=== PATIENT | female | born 1980 | race Caucasian/White ===

== ENCOUNTER 2019-06-25 19:25 | Emergency (ER) | payer OTHER ==
[2019-06-25 19:38] VITALS: BMI 35.7
--- NOTE | 2019-06-25 20:02 | PDOC ---
History of Present Illness - General Chief Complaint: Wheezing Stated Complaint: FEVER/COUGHING/CHILLS Time Seen by Provider: 06/25/19 20:01 History Source: Patient Past History - Past Medical History Allergies/Adverse Reactions: Allergies Allergy/AdvReac Type Severity Reaction Status Date / Time shellfish derived Allergy Verified 06/25/19 19:29 Home Medications: Ambulatory Orders Azithromycin 250 mg PO DAILY #6 tablet 06/25/19 Asthma: Yes COPD: No Disorders: Yes (D+C) - Psycho Social/Smoking Cessation Hx Smoking History: Never smoked Hx Alcohol Use: No Drug/Substance Use Hx: No *Physical Exam - Vital Signs Last Vital Signs Temp Pulse Resp BP Pulse Ox 102.9 F H 130 H 22 H 141/74 94 L 06/25/19 19:30 06/25/19 19:30 06/25/19 19:30 06/25/19 19:30 06/25/19 19:30 Discharge - Discharge Information Problems reviewed: Yes Clinical Impression/Diagnosis: Pneumonia Qualifiers: Pneumonia type: due to unspecified organism Laterality: right Lung location: middle lobe of lung Qualified Code(s): J18.9 - Pneumonia, unspecified organism Condition: Stable Disposition: HOME - Admission No - Additional Discharge Information Prescriptions: Azithromycin 250 mg PO DAILY #6 tablet - Follow up/Referral Referrals: ON STAFF,NOT [Primary Care Provider] - - Patient Discharge Instructions Patient Printed Discharge Instructions: DI for Pneumonia -- Adult Additional Instructions: You were seen in the ER for fever, chills, cough. Your chest x ray shows a small pneumonia. We are sending an antibiotic to your pharmacy - please take it as directed. We gave you your first dose here in the ER. Please return if you develop high fevers that do not go down with tylenol, weakness, confusion, chest pain, or trouble breathing. - Post Discharge Activity Work/Back to School Note: Back to Work
[2019-06-25] MEDS ORDERED: ACETAMINOPHEN 500 MG TABLET (FP) PO ONE (20:29)
[2019-06-25] MEDS ORDERED: ACETAMINOPHEN 325 MG TABLET (FP) ONE (20:31)
--- NOTE | 2019-06-25 21:30 | PDOC ---
Documentation entered by Mat Jean SCRIBE, acting as scribe for Aby Peter MD. Aby Peter MD: This documentation has been prepared by the pawanibe, Mat Jean SCRIBE, under my direction and personally reviewed by me in its entirety. I confirm that the documentation accurately reflects all work, treatment, procedures, and medical decision making performed by me. Attending Attestation - Resident Resident Name: [email or web address] - ED Attending Attestation I have performed the following: I have examined & evaluated the patient, The case was reviewed & discussed with the resident, I agree w/resident's findings & plan, Exceptions are as noted - HPI HPI: 06/25/19 20:43 The patient is a 39 year old female with a past medical history of asthma here today for evaluation of fever, cough, and general body aches. The patient reports that yesterday she developed a productive cough, fever, general body aches, and rhinorrhea. She notes that she has an unvaccinated 1 year old at home. Patient denies headache, lightheadedness. Denies chills. Denies chest pain, shortness of breath. Denies nausea, vomiting, diarrhea, abdominal pain. Allergies: shellfish derived - Physicial Exam PE: 06/25/19 21:12 GENERAL: Well developed, well nourished. Awake and alert. No acute distress. HEENT: Normocephalic, atraumatic. PERRLA, EOMI. No conjunctival pallor. Sclera are non- icteric. Moist mucous membranes. Oropharynx is clear. NECK: Supple. Full ROM. No JVD. Carotid pulses 2+ and symmetric, without bruits. No thyromegaly. No lymphadenopathy. CARDIOVASCULAR: +tachycardia Regular rhythm. No murmurs, rubs, or gallops. Distal pulses are 2+ and symmetric. PULMONARY: No evidence of respiratory distress. Lungs clear to auscultation bilaterally. No wheezing, rales or rhonchi. ABDOMINAL: Soft. Non-tender. Non-distended. No rebound or guarding. No organomegaly. Normoactive bowel sounds. MUSCULOSKELETAL Normal range of motion at all joints. No bony deformities or tenderness. No CVA tenderness. EXTREMITIES: No cyanosis. No clubbing. No edema. No calf tenderness. SKIN: Warm and dry. Normal capillary refill. No rashes. No jaundice. NEUROLOGICAL: Alert, awake, appropriate. Cranial nerves 2-12 intact. No deficits to light touch and temperature in face, upper extremities and lower extremities. No motor deficits in the face, upper extremities and lower extremities. Normoreflexic in the upper and lower extremities. Normal speech. Toes are down- going bilaterally. PSYCHIATRIC: Cooperative. Good eye contact. Appropriate mood and affect. - Medical Decision Making 06/25/19 21:28 Patient was given Tylenol for her fever Flu swabs were negative Chest x-ray showed an equivocal infiltrate on the right retrocardiac are with some increased markings in the right lower lobe Probable early community acquired pneumonia Patient placed on antibiotics and sent home After tylenol this patient is comfortable - she has no respiratory distress, she is not tachypneic and she is not hypoxic at this time pt agrees with the plan 06/25/19 21:59
[2019-06-25 21:39] VITALS: BP 142/85; PULSE 104; TEMP 100.1
[2019-06-25] MEDS ORDERED: AZITHROMYCIN 250 MG TABLET PO ONE (21:44)
[2019-06-25] MEDS ORDERED: AZITHROMYCIN 250 MG TABLET ONE (21:50)
== END 2019-06-25 22:00 | disposition home or self-care (01) ==
LOC: JER 19:25
DX: J18.9 Pneumonia, unspecified organism (principal); Z91.013 Allergy to seafood
CPT/HCPCS: 71046-TC-FY; 87804; 99282-25